=== PATIENT | female | born 1970 | race African-American/Black ===

== ENCOUNTER 2019-01-17 01:31 | Emergency (ER) | payer MEDICAID, OTHER ==
[~2019-01-17] VITALS: Ht 170.2 cm; Wt 111.1 kg
[2019-01-17 02:43] LABS: Partial Thromboplastin Time 26.4 sec (23.78-33.04); Prothrombin Time 10.7 sec (9.27-12.13)
[2019-01-17 02:49] LABS: Albumin 3.8 g/dL (3.4-5.0); Anion Gap 10 (5-15); BUN/Creatinine Ratio 12.9; Blood Urea Nitrogen 12 mg/dL (7-18); Calcium 8.8 mg/dL (8.5-10.1); Carbon Dioxide 23 mmol/L (21-32); Chloride 108 mmol/L (98-107); GFR African American 83 mL/min; GFR Non-African American 68 mL/min; Glucose 83 mg/dL (74-106); Magnesium 2.2 mg/dL (1.6-2.6); Potassium 3.9 mmol/L (3.5-5.1); Sodium 141 mmol/L (136-145)
[2019-01-17 02:54] LABS: Alanine Aminotransferase 17 U/L (13-56); Alkaline Phosphatase 37 U/L (45-117); Aspartate Aminotransferase 12 U/L (15-37); Bilirubin, Total 0.3 mg/dL (0.2-1.0); Total Protein 7.1 g/dL (6.4-8.2)
[2019-01-17 03:22] LABS: Basophils # (auto) 0 uL; Basophils % (auto) 0.5 % (0.0-2.0); Eosinophils # (auto) 0.2 uL; Hematocrit 36.7 % (36.0-46.0); Hemoglobin 12.2 g/dL (12.2-16.2); Lymphocytes % (auto) 37.5 % (10.0-50.0); Mean Corpuscular Hemoglobin 30.5 pg (28.0-32.0); Mean Corpuscular Hgb Conc. 33.1 g/dL (32.0-36.0); Mean Corpuscular Volume 92.1 fL (80.0-100.0); Monocytes # (auto) 0.4 uL; Monocytes % (auto) 7.3 % (0.0-12.0); Neutrophils # (auto) 2.7 uL; Neutrophils % (auto) 51.7 % (37.0-80.0); Nucleated Red Blood Cells % 0.2 %; Platelet Count (auto) 293 10^3/uL (140-450); Red Blood Cells 3.99 10^6/uL (4.0-5.20); Red Cell Distribution Width 13.9 % (11.8-14.3); White Blood Cell 5.3 10^3/uL (4.4-10.8)
[2019-01-17 04:21] VITALS: BP 126/78
== END 2019-01-17 04:49 | disposition home or self-care (01) ==
LOC: EDBD 01:31 → ER 01:36
DX: R60.9 Edema, unspecified (principal); R20.2 Paresthesia of skin; J45.909 Unspecified asthma, uncomplicated; I10 Essential (primary) hypertension
CPT/HCPCS: 36415; 71045; 80053; 83735; 83880; 84443; 84484; 85025; 85610; 85730; 93005; 93971; 94761

== ENCOUNTER 2019-01-27 01:47 | Emergency (ER) | payer MEDICAID ==
[~2019-01-27] VITALS: Ht 170.2 cm; Wt 109.8 kg
[2019-01-27 02:13] LABS: Basophils # (auto) 0 uL; Basophils % (auto) 0.7 % (0.0-2.0); Eosinophils # (auto) 0.1 uL; Eosinophils % (auto) 2.3 % (0.0-7.0); Hematocrit 34.5 % (36.0-46.0); Hemoglobin 11.3 g/dL (12.2-16.2); Lymphocytes # (auto) 1.4 uL; Lymphocytes % (auto) 23.7 % (10.0-50.0); Mean Corpuscular Hemoglobin 30.6 pg (28.0-32.0); Mean Corpuscular Hgb Conc. 32.7 g/dL (32.0-36.0); Mean Corpuscular Volume 93.5 fL (80.0-100.0); Monocytes # (auto) 0.6 uL; Monocytes % (auto) 9.4 % (0.0-12.0); Neutrophils # (auto) 3.8 uL; Neutrophils % (auto) 63.9 % (37.0-80.0); Nucleated Red Blood Cells % 0.1 %; Platelet Count (auto) 307 10^3/uL (140-450); Red Blood Cells 3.69 10^6/uL (4.0-5.20); Red Cell Distribution Width 14.2 % (11.8-14.3)
[2019-01-27 02:31] LABS: Albumin 3.4 g/dL (3.4-5.0); BUN/Creatinine Ratio 16.7; Calcium 8.4 mg/dL (8.5-10.1); Potassium 3.8 mmol/L (3.5-5.1)
[2019-01-27 02:34] LABS: Bilirubin, Total 0.1 mg/dL (0.2-1.0); Total Protein 6.7 g/dL (6.4-8.2)
[2019-01-27 04:16] LABS: Urine Bacteria FEW /hpf (None Seen); Urine Blood Negative /uL (Negative); Urine Mucus FEW (None Seen); Urine Specific Gravity 1.039 (1.001-1.035); Urine WBC 1 /hpf (0 - 5)
[2019-01-27 04:48] VITALS: BP 129/69
== END 2019-01-27 05:15 | disposition home or self-care (01) ==
LOC: ER 01:48
DX: R60.9 Edema, unspecified (principal); J45.909 Unspecified asthma, uncomplicated; I10 Essential (primary) hypertension
CPT/HCPCS: 36415; 71045; 80053; 81001; 81025; 83880; 85025

== ENCOUNTER 2020-01-10 07:51 | Inpatient (IN) | payer MEDICAID ==
[~2020-01-10] VITALS: Ht 170.2 cm; Wt 121.8 kg
[2020-01-10] MEDS ORDERED: SODIUM CHLORIDE 0.9% 1,000 ML IV ONE ×2 (08:00)
[2020-01-10 08:11] LABS: Basophils # (auto) 0 10 ^3/uL (0-0.2); Basophils % (auto) 0.7 % (0.0-2.0); Eosinophils # (auto) 0.1 10 ^3/uL (0-0.8); Eosinophils % (auto) 2.4 % (0.0-7.0); Hematocrit 40.5 % (36.0-46.0); Hemoglobin 13.3 g/dL (12.2-16.2); Lymphocytes # (auto) 2.3 10 ^3/uL (0.4-5.4); Lymphocytes % (auto) 38.3 % (10.0-50.0); Mean Corpuscular Hemoglobin 29.7 pg (28.0-32.0); Mean Corpuscular Hgb Conc. 32.8 g/dL (32.0-36.0); Mean Corpuscular Volume 90.8 fL (80.0-100.0); Monocytes # (auto) 0.5 10 ^3/uL (0-1.3); Monocytes % (auto) 8.3 % (0.0-12.0); Neutrophils # (auto) 3.1 10 ^3/uL (1.6-8.6); Neutrophils % (auto) 50.3 % (37.0-80.0); Platelet Count (auto) 338 10^3/uL (140-450); Red Blood Cells 4.46 10^6/uL (4.0-5.20); Red Cell Distribution Width 14.1 % (11.8-14.3); White Blood Cell 6.1 10^3/uL (4.4-10.8)
[2020-01-10 08:20] LABS: Albumin 3.7 g/dL (3.4-5.0); Anion Gap 9 (5-15); Blood Alcohol < 3.0 mg/dL (0-5); Blood Urea Nitrogen 13 mg/dL (7-18); Calcium 8.7 mg/dL (8.5-10.1); Carbon Dioxide 23 mmol/L (21-32); Chloride 110 mmol/L (98-107); Glucose 109 mg/dL (74-106); Potassium 3.3 mmol/L (3.5-5.1); Sodium 142 mmol/L (136-145)
[2020-01-10 08:25] LABS: Alanine Aminotransferase 14 U/L (13-56); Alkaline Phosphatase 47 U/L (45-117); Aspartate Aminotransferase 7 U/L (15-37); BUN/Creatinine Ratio 12.9; Bilirubin, Total 0.5 mg/dL (0.2-1.0); GFR African American 75 mL/min; GFR Non-African American 62 mL/min; Total Protein 7.9 g/dL (6.4-8.2)
[2020-01-10 08:26] LABS: INR 1.01 (0.9-1.15); Partial Thromboplastin Time 25.1 sec (23.64-32.05)
[2020-01-10 08:30] LABS: Urine Bacteria NONE SEEN /hpf (None Seen); Urine Blood 1+ /uL (Negative); Urine Hyaline Cast FEW /lpf (0 - 2); Urine Mucus FEW (None Seen); Urine Specific Gravity 1.029 (1.001-1.035); Urine WBC 1 /hpf (0 - 5)
[2020-01-10 08:42] LABS: Alcohol, Urine < 3.0 mg/dL (0-5); Amphetamine Screen, Urine NEGATIVE (NEGATIVE); Barbiturate Scree,Urine NEGATIVE (NEGATIVE); Benzodiazephine Screen, Urine NEGATIVE (NEGATIVE); Cannabinoid Screen, Urine NEGATIVE (NEGATIVE); Cocaine Screen, Urine NEGATIVE (NEGATIVE); Opiate Scree,Urine NEGATIVE (NEGATIVE); Phencyclidine Screen, Urine POSITIVE (NEGATIVE)
[2020-01-10] MEDS ORDERED: SERT-160 PO (09:58)
[2020-01-10] MEDS ORDERED: GABA100C9 PO (09:58)
[2020-01-10] MEDS ORDERED: HYDR12.56 PO (09:58)
[2020-01-10] MEDS ORDERED: CYCL5TAB PO (09:58)
[2020-01-10] MEDS ORDERED: MONT10TA34 PO (09:58)
[2020-01-10] MEDS ORDERED: CHLO25TA22 PO (09:58)
[2020-01-10] MEDS ORDERED: ACE3T PO (09:58)
[2020-01-10] MEDS ORDERED: LOSA-69 PO (09:58)
[2020-01-10] MEDS ORDERED: CARV25TA55 PO (09:59)
[2020-01-10] MEDS ORDERED: OMEP20TA PO (09:59)
[2020-01-10] MEDS ORDERED: SOD CHL 0.9%/ KCL 40MEQ 1,000 ML IV ONE ×2 (10:00→10:05)
[2020-01-10] MEDS ORDERED: HYDROcodone-ACET 5/325MG TAB PO PRN (10:00)
[2020-01-10] MEDS ORDERED: DOCU-94 PO (10:00)
[2020-01-10] MEDS ORDERED: ENALAPRILAT 1.25 MG/ML-1ML VIAL IV PRN (10:00)
[2020-01-10] MEDS ORDERED: ALBUTEROL SULF 2.5 MG/0.5ML(0.5%) NEB SOLN NEB ONE (10:00)
[2020-01-10] MEDS ORDERED: LORazepam 2MG/ML-1ML VIAL IV PRN (10:00)
[2020-01-10] MEDS ORDERED: NITROGLYCERIN 0.4 MG SL TAB SL PRN (10:00)
[2020-01-10] MEDS ORDERED: IPRATROPIUM BROM 0.5 MG/2.5ML INH SOL NEB ONE (10:00)
[2020-01-10] MEDS ORDERED: IPRATROPIUM BROM 0.5 MG/2.5ML INH SOL NEB PRN (10:00)
[2020-01-10] MEDS ORDERED: ALBUTEROL SULF 2.5 MG/0.5ML(0.5%) NEB SOLN NEB PRN (10:00)
[2020-01-10] MEDS ORDERED: MORPHINE SULF INJ 2 MG/ML SYRINGE 1ML IV PRN (10:00)
[2020-01-10] MEDS ORDERED: ONDANSETRON HCL 4 MG/2 ML VIAL IV PRN (10:00)
--- NOTE | 2020-01-10 10:10 | NUR ---
Telemetry admit from ER RICBIJAN admitted to Telemetry unit after SBAR received. Patient oriented to primary RN, unit, room, bed, and unit policies regarding patient care and visiting hours. Patient now on continuous telemetry monitoring, tele box #[id number] and telemetry reading on arrival to unit is sinus rhythm 98.vital signs taken Temp: 98.9,HR 96,RR20,BP 159/96 on room air.O2 saturation 94%.ice pack to upper lips in used.patient oriented to plan of care and nursing routines,call light within reach,patient reminded instructed to call for assistance. patient verbalized understanding.All questions and concerns addressed.
--- NOTE | 2020-01-10 10:32 | NUR ---
Respiratory note: MED NEB TX GIVEN. PT TOLERATED WELL, NO ADVERSE REACTION NOTED. PT WAS JUST BROUGHT UP TO THE FLOOR FROM ER. HR 96, RR 16, SPO2 98% ON ROOM AIR. I/E WHEEZES HEARD T/O.
[2020-01-10] MEDS ORDERED: LOSARTAN POTASSIUM 50 MG TAB PO ONE (10:45)
[2020-01-10] MEDS ORDERED: CARVEDILOL 12.5 MG TAB PO ONE (10:45)
[2020-01-10 10:54] VITALS: BP 152/99
[2020-01-10] MEDS: FAMOTIDINE 20 MG TAB PO SCH (11:30)
--- NOTE | 2020-01-10 11:30 | NUR ---
Patient reminded instructed to ask family to bring Thalitone medication from home.
[2020-01-10] MEDS: CHLORTHALIDONE PO SCH (11:32)
[2020-01-10 12:16] VITALS: BP 159/96
[2020-01-10 12:38] VITALS: BP 143/91
[2020-01-10] MEDS: MONTELUKAST SODIUM 10 MG TAB PO SCH (14:49)
--- NOTE | 2020-01-10 16:16 | NUR ---
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
[2020-01-10 17:26] VITALS: BP 142/88
--- NOTE | 2020-01-10 19:01 | NUR ---
STATUS UNCHANGED REPORT GIVEN TO INCOMING NOC SHIFT RN FOR CONTINUATION OF CARE.
--- NOTE | 2020-01-10 19:35 | NUR ---
Opening Shift Note Received report and assumed care of patient. Patient is awake and alert. No signs or symptoms of distress noted. Instructed patient on plan of care and to call for assistance as needed. Will continue to monitor.
[2020-01-10] MEDS: CARVEDILOL 12.5 MG TAB PO SCH (22:14)
[2020-01-10 22:20] VITALS: BP 152/82
--- NOTE | 2020-01-11 01:31 | NUR ---
Respiratory note: PT ASSESSED FOR PRN TX. HR 85, RR 18, POX 96% ON RA, BS ARE CLEAR. NO SOB OR DISTRESS NOTED. PT NOTIFY TO HAVE RT PAGE FOR NEEDED [place] TX.
[2020-01-11] MEDS: ACETAMINOPHEN 500 MG TAB PO PRN ×2 (04:06→15:53)
--- NOTE | 2020-01-11 04:06 | NUR ---
Pain Medication Administration Patient complaining of back pain 05/18. Patient requesting acetaminophen 500mg PO to be administered. Patient states she takes tylenol at home. Explained pain medication to patient, patient verbalized understanding. Will administer pain medication and will reassess pain level.
--- NOTE | 2020-01-11 05:04 | NUR ---
Pain Medication Reassessment Patient pain level reassessed to 0/10. Patient states she is comfortable. Will continue to monitor.
[2020-01-11 05:30] VITALS: BP 140/61
--- NOTE | 2020-01-11 07:35 | NUR ---
Opening Shift Note Report received and assumed care of patient, resting in bed,awake,alert oriented no distress no discomfort. Instructed on POC and Nursing routines, call light within reach, patient instructed to .call for assistance,will continue to monitor for changes Q1hr and PRN. Patient verbalized understanding
[2020-01-11 08:54] VITALS: BP 143/70
[2020-01-11] MEDS: FAMOTIDINE 20 MG TAB PO SCH (09:45)
[2020-01-11] MEDS: MONTELUKAST SODIUM 10 MG TAB PO SCH (09:45)
[2020-01-11] MEDS: LOSARTAN POTASSIUM 50 MG TAB PO SCH (09:46)
[2020-01-11] MEDS: CARVEDILOL 12.5 MG TAB PO SCH ×2 (09:47→21:35)
--- NOTE | 2020-01-11 09:50 | NUR ---
MD Dr. Ricardo, at bedside. Updated patient on POC, goal to rehydrate and monitor labs. Ordered to discontinue Doe Cath. Awaiting today lab to reassess for medication therapy.
[2020-01-11] MEDS: CHLORTHALIDONE PO SCH (10:00)
--- NOTE | 2020-01-11 10:30 | NUR ---
RICHARDSON CATHETER DISCONTINUED ORDERED BY DR. WYNNE
[2020-01-11 10:42] LABS: Albumin 3.3 g/dL (3.4-5.0); Calcium 8.4 mg/dL (8.5-10.1); Magnesium 2.3 mg/dL (1.6-2.6); Potassium 3.8 mmol/L (3.5-5.1)
[2020-01-11 10:44] LABS: BUN/Creatinine Ratio 8.6; Bilirubin, Total 0.5 mg/dL (0.2-1.0); Total Protein 7.1 g/dL (6.4-8.2)
[2020-01-11] MEDS ORDERED: D5W/ SOD CHL 0.9%/KCL 20MEQ 1,000 ML IV SCH (10:45)
--- NOTE | 2020-01-11 11:00 | NUR ---
Patient voiding freely and without discomfort
--- NOTE | 2020-01-11 11:30 | NUR ---
RECEIVED A CALL FROM PHARMACIST STATED THERE IS NO IV THIAMINE AVAILABLE TO MIX WITH BANANA BAG, BUT INSTEAD THERE IS PO AVAILABLE,REQUESTED RN TO CALL MD TO INFORM.
[2020-01-11] MEDS ORDERED: FOLIC ACID 1 MG, MULTIPLE VITAMIN 10 ML, MAGNESIUM SULF SDV 50% 8 MEQ, THIAMINE INJ 100... INJ SCH ×5 (12:00)
[2020-01-11] MEDS: MAGNESIUM SULFATE 1GM/100ML 100 ML IV SCH (12:30)
--- NOTE | 2020-01-11 12:30 | NUR ---
DR. WYNNE CALLED BACK AND INFORMED OF NO THIAMINE IV AVAILABLE PER PHARMACY,RECEIVED ORDER TO DISCONTINUE BANANA BAG TO GIVE THIAMINE PO AND FOLIC ACID PO SEE ORDER WRITTEN, ALSO INFORMED OF MAGNESIUM LEVEL OF 2.3 AND POTASSIUM 3.8 RECEIVED ORDER TO DISCONTINUE POTASSIUM IN THE IVF.
--- NOTE | 2020-01-11 12:30 | NUR ---
MAGNESIUM RIDER NOT GIVEN, MAGNESIUM LEVEL 2.3
[2020-01-11 12:47] VITALS: BP 139/90
[2020-01-11] MEDS: D5W/SOD CHLO 0.9% 1,000 ML IV SCH (14:29)
[2020-01-11] MEDS: FOLIC ACID 1 MG TAB PO SCH (14:29)
[2020-01-11] MEDS: THIAMINE HCL 100 MG TAB PO SCH (14:29)
--- NOTE | 2020-01-11 15:53 | NUR ---
PATIENT C/O LOWER BACK PAIN SCALE OF 8/10,PATIENT REFUSED NORCO,PREFERS AND REQUESTED TO TAKE TYLENOL 500 MG FOR PAIN
[2020-01-11 16:54] VITALS: BP 138/90
--- NOTE | 2020-01-11 19:22 | NUR ---
Status unchanged,no distress,no discomfort.report given to incoming NOC shift RN.
--- NOTE | 2020-01-11 19:30 | NUR ---
Opening Shift Note Received report and assumed care of patient. Patient is awake and alert. No signs or symptoms of distress noted, patient currently denies pain. Instructed patient on plan of care and to call for assistance as needed. Will continue to monitor.
[2020-01-11 22:00] VITALS: BP 137/87
[2020-01-12] MEDS: D5W/SOD CHLO 0.9% 1,000 ML IV SCH (03:44)
[2020-01-12 05:00] VITALS: BP 122/75
[2020-01-12 05:46] LABS: Basophils # (auto) 0 10 ^3/uL (0-0.2); Basophils % (auto) 0.3 % (0.0-2.0); Eosinophils # (auto) 0.2 10 ^3/uL (0-0.8); Eosinophils % (auto) 3.7 % (0.0-7.0); Hematocrit 34.2 % (36.0-46.0); Hemoglobin 11.7 g/dL (12.2-16.2); Lymphocytes # (auto) 1.4 10 ^3/uL (0.4-5.4); Lymphocytes % (auto) 30.7 % (10.0-50.0); Mean Corpuscular Hgb Conc. 34.3 g/dL (32.0-36.0); Mean Corpuscular Volume 90.4 fL (80.0-100.0); Monocytes # (auto) 0.4 10 ^3/uL (0-1.3); Monocytes % (auto) 8.3 % (0.0-12.0); Neutrophils # (auto) 2.5 10 ^3/uL (1.6-8.6); Nucleated Red Blood Cells % 0.2 %; Platelet Count (auto) 251 10^3/uL (140-450); Red Blood Cells 3.78 10^6/uL (4.0-5.20); Red Cell Distribution Width 13.9 % (11.8-14.3); White Blood Cell 4.4 10^3/uL (4.4-10.8)
[2020-01-12 06:04] LABS: Albumin 2.9 g/dL (3.4-5.0); Calcium 8.2 mg/dL (8.5-10.1); Magnesium 2.2 mg/dL (1.6-2.6); Potassium 3.7 mmol/L (3.5-5.1)
[2020-01-12 06:09] LABS: BUN/Creatinine Ratio 11.1; Bilirubin, Total 0.5 mg/dL (0.2-1.0); Total Protein 6.3 g/dL (6.4-8.2)
[2020-01-12 08:00] VITALS: BP 143/80
--- NOTE | 2020-01-12 08:00 | NUR ---
Opening Shift Note Assumed care of patient, awake, alert, and oriented. No S/S of distress/SOB or pain. Bed in lowest/locked position, bed rails up x2, call light within reach. Instructed on POC and to call for assist PRN. Will continue to monitor for changes Q1hr and PRN.
[2020-01-12] MEDS: FAMOTIDINE 20 MG TAB PO SCH (08:59)
[2020-01-12] MEDS: THIAMINE HCL 100 MG TAB PO SCH (08:59)
[2020-01-12] MEDS: CARVEDILOL 12.5 MG TAB PO SCH (09:00)
[2020-01-12] MEDS: FOLIC ACID 1 MG TAB PO SCH (09:00)
[2020-01-12] MEDS: MONTELUKAST SODIUM 10 MG TAB PO SCH (09:00)
[2020-01-12] MEDS: LOSARTAN POTASSIUM 50 MG TAB PO SCH (09:01)
[2020-01-12] MEDS: CHLORTHALIDONE PO SCH (09:01)
--- NOTE | 2020-01-12 11:39 | NUR ---
Respiratory note: PT ASSESSED FOR PRN TX. HR 90, RR 18, POX 98% ON 2L NC, BREATH BS ARE CLEAR. NO SOB OR DISTRESS NOTED AT THIS TIME. PT WAS NOTIFY TO HAVE RT PAGE FRO NEEDED TX.
[2020-01-12 12:00] VITALS: BP 131/85
--- NOTE | 2020-01-12 14:23 | NUR ---
Discharge instructions given as ordered. Encourage to follow up with PMD as instructed. All questions and concerns addressed. Patient verbalized understanding. IV removed with catheter intact, pressure dressing applied. Telemetry unit returned to ICU. Patient taken to vehicle via wheelchair with all personal belongings, accompanied by staff. No distress noted at time of departure.
== END 2020-01-12 14:30 | disposition home or self-care (01) | DRG 52 ==
LOC: ER 07:51 → TELE 07:52 → TELE-WESTW 10:23
PROVIDERS: ADMIT Nurse Practitioner Acute Care; ATTEND Internal Medicine
DX: G92 Toxic encephalopathy (principal); E44.0 Moderate protein-calorie malnutrition; E88.09 Other disorders of plasma-protein metabolism, not elsewhere classified; F16.10 Hallucinogen abuse, uncomplicated; F10.10 Alcohol abuse, uncomplicated; E66.9 Obesity, unspecified; E87.6 Hypokalemia; I10 Essential (primary) hypertension; J45.909 Unspecified asthma, uncomplicated; Z87.891 Personal history of nicotine dependence; Z79.899 Other long term (current) drug therapy; Z68.38 Body mass index [BMI] 38.0-38.9, adult
CPT/HCPCS: 36415; 70450; 71045; 80053; 80307; 80320; 81001; 83735; 84484; 85025; 85610; 85730; 94640; 99291; G0378; J7042